=== PATIENT | female | born 1975 | race Caucasian/White ===

== ENCOUNTER 2017-07-14 13:31 | Emergency (ER) | payer OTHER ==
[2017-07-14 13:55] VITALS: BP 130/68; PULSE 86; TEMP 97.8; BMI 22.8
--- NOTE | 2017-07-14 15:26 | PDOC ---
Attending Attestation - HPI HPI: 07/14/17 17:11 Patient is a 42 year old female with a significant past medical history of Major depressive disorder, Anxiety, OCD and ADHD who presents to the ED after being sent by her therapist to be medically cleared and transferred to [facility]. Patient reports therapist stated she did not like the psychological state in which she was in stating, she was beginning to experience decreased sleep, decreased appetite and increased depression. She reports her therapist wanted her to go in [facility] for observation. Patient reports experiencing anxiety while in her therapists office. Denies suicidal thought, homicidal thoughts. Denies nausea, vomiting. Denies chest pain. Denies fevers, chills. Denies recent trauma. Denies contact with sick individuals, out of state travel. Denies any other symptoms. Allergies: None Social history: Current smoker. No alcohol. No illicit drugs. Surgical history: None PMD: Dr. Denis Lord - Physicial Exam PE: 07/14/17 17:11 Vitals: Triage Vital signs reviewed General Appearance: no acute distress, well nourished well developed Head: Atraumatic Eyes: Pupils equal reactive round, extraocular movement intact Ears: TMs normal bilaterally Nose: Nares patent bilaterally; no nasal congestion Throat: Posterior oropharynx without erythema, mucous membranes moist Neck: Supple; No Nuchal rigidity Chest Wall: Nontender Cardiac: Regular rate and rhythm, no murmurs, no rubs, no gallops Lungs: Clear to auscultation bilateral, good air movement bilaterally Abdomen: Soft, non distended, normal bowel sounds, non tender to palpation Genitourinary: Rectal: Exam deferred Extremities: Full range of motion to all extremities, no cyanosis, clubbing, or edema Skin: Warm and dry, no rashes or lesions, no rash, no petechiae Neuro: AOX3; Cranial Nerves 2-12 grossly intact, Strength intact to all extremities, Sensation intact to all extremities, gait normal Psych: +Passive suicidal ideation. +Some visual hallucinations. No definitive plan. No thoughts of harming others or self. No auditory hallucinations Normal mood, normal affect - Medical Decision Making 07/14/17 17:11 Documentation prepared by Jarrett White, acting as medical artist for Gabo Nolen MD, /DO. <Jarrett White - Last Filed: 07/14/17 17:11> - Resident Resident Name: Eduar Cross - ED Attending Attestation I have performed the following: I have examined & evaluated the patient, The case was reviewed & discussed with the resident, I agree w/resident's findings & plan, Exceptions are as noted - Medical Decision Making 42 years old with past medical history significant for anxiety depression polysubstance abuse sent to the emergency department for psychiatric admission and medical clearance Patient was seen and evaluated by her psychiatrist today states that she has been in a steady downward decline regarding her ability to care for self her impulsivity as well as now expressing passive suicidal ideation Patient currently lives in a long term there was a question whether she is improperly using her prescription pain medications as well Here in the emergency department patient endorsing same passive suicidal ideation without definitive plan. Denies homicidal ideation denies auditory hallucinations but some visual hallucinations which she states may be secondary to be overtired patient states she is not eating she is not sleeping Psychiatry Casandra Blanco INTEGRATED SPECIALIST consulted. Patient placed on one-to-one observation Pending consultation and disposition Reevaluation Psychiatrist and patient have found a bed at [facility] for patient Bed will become available tomorrow We'll place patient in ED short stay observation overnight <Gabo Nolen - Last Filed: 07/14/17 17:58>
[2017-07-14 15:51] LABS: BASO % 0.3 % (0-2.0); EOS % 0.1 % (0-4.5); HEMOGLOBIN 15.4 GM/dL (10.7-15.3); LYMPH % 13.1 % (8-40); MCH 32.6 pg (25.7-33.7); MCHC 34.2 g/dl (32.0-36.0); MEAN CELL VOLUME 95.4 fl (80-96); MEAN PLT VOLUME 9.6 fl (7.5-11.1); MONO % 2.8 % (3.8-10.2); NEUT % 83.7 % (42.8-82.8); PLATELET COUNT 161 K/MM3 (134-434); RBC 4.72 M/mm3 (3.60-5.2); RDW 14.2 % (11.6-15.6); WHITE BLOOD COUNT 6.8 K/mm3 (4.0-10.0)
--- NOTE | 2017-07-14 16:12 | PDOC ---
History of Present Illness - General Chief Complaint: Psychiatric Stated Complaint: EVALUATION (PCP SENT) Time Seen by Provider: 07/14/17 14:32 History Source: Patient Exam Limitations: No Limitations - History of Present Illness Initial Comments: 42F with pmh of Major depressive disorder, Anxiety, OCD and ADHD sent by her psychiatrist to be medically cleared before potential admission to [facility]. Patient states that she was feeling anxious earlier at the therapist's office, with recent worsening of her depression and stressors but denied suicidal or homicidal thoughts. However. patient came with letter from psychiatrist who stated that the patient did have passive suicidal ideation. Past History - Past Medical History Allergies/Adverse Reactions: Allergies No Known Allergies Allergy (Verified 07/14/17 13:48) Home Medications: Ambulatory Orders Dextroamphetamine Sulfate [Zenzedi] 20 mg PO DAILY 02/26/16 Divalproex [Depakote -] 500 mg PO BID 02/26/16 Duloxetine HCl [Cymbalta] 60 mg PO DAILY 02/26/16 Gabapentin [Neurontin] 300 mg PO HS 02/26/16 Levothyroxine [Synthroid -] 50 mcg PO DAILY 02/26/16 Methocarbamol [Robaxin -] 500 mg PO TID PRN #20 tablet 02/26/16 Naproxen [Naprosyn -] 500 mg PO BID PRN #14 tablet 02/26/16 Oxycodone HCl/Acetaminophen [Percocet 5-325 mg Tablet -] 1 tab PO Q6H PRN #10 tablet MDD 4 02/26/16 Tramadol HCl 50 mg PO Q12H 02/26/16 - Social History Smoking Status: Current every day smoker Number of Cigarettes Per Day: 20 *Review of Systems - Review of Systems Able to Perform ROS?: Yes Constitutional: No: Symptoms Reported HEENTM: No: Symptoms Reported Respiratory: No: Symptoms reported Cardiac (ROS): No: Symptoms Reported ABD/GI: No: Symptoms Reported : No: Symptoms Reported Musculoskeletal: No: Symptoms Reported Integumentary: No: Symptoms Reported Neurological: No: Symptoms reported Psychiatric: Yes: Anxiety, Depression, Stressors, Emotional Problems, Mood Swings, Change in Appetite Endocrine: No: Symptoms Reported All Other Systems: Reviewed and Negative *Physical Exam - Vital Signs Last Vital Signs Temp Pulse Resp BP Pulse Ox 97.8 F 86 18 130/68 99 07/14/17 13:48 07/14/17 13:48 07/14/17 13:48 07/14/17 13:48 07/14/17 13:48 - Physical Exam General Appearance: Yes: Nourished, Appropriately Dressed. No: Apparent Distress HEENT: positive: EOMI, HOMER, Normal ENT Inspection Neck: negative: Tender Respiratory/Chest: positive: Lungs Clear, Normal Breath Sounds. negative: Chest Tender, Respiratory Distress Cardiovascular: positive: Regular Rhythm, Regular Rate, S1, S2 Gastrointestinal/Abdominal: positive: Normal Bowel Sounds, Flat, Soft. negative : Tender Extremity: positive: Normal Capillary Refill, Normal Inspection Neurologic: positive: Fully Oriented, Alert, Normal Mood/Affect. negative: Confused, Disoriented Plan - Progress Note Progress Note: 07/14/17 16:19 PHLEBOTOMIST LAB ASSISTANT Casandra Blanco personnel coordinator, will come see the patient. Service Dog Peanut allowed to come to the patient's room. Will evaluate with labs before discharging to [facility] after Psych consult. - Order(s) Order(s): Orders last 12 hours Category Date Time Status EKG [ELECTROCARDIOGRAM] [CARD] Stat Cardiology 07/14/17 15:08 Ordered CBC WITH DIFFERENTIAL Stat Lab 07/14/17 15:08 Ordered URINALYSIS Stat Lab 07/14/17 15:08 Ordered - Laboratory CBC & Chemistry Diagram: 07/14/17 15:16 07/14/17 15:16 Lab/Micro Results: 07/14/17 15:16 RBC 4.72 MCV 95.4 MCHC 34.2 RDW 14.2 MPV 9.6 D Neutrophils % 83.7 H Lymphocytes % 13.1 Monocytes % 2.8 L Eosinophils % 0.1 Basophils % 0.3 *DC/Admit/Observation/Transfer Diagnosis at time of Disposition: Major depression Qualifiers: Major depression recurrence: recurrent Active/Remission status: currently active Major depression episode severity: unspecified Qualified Code(s): F33.9 - Major depressive disorder, recurrent, unspecified - Discharge Dispostion Disposition: TRANSFER ACUTE CARE/OTHER HOSP Condition at time of disposition: Guarded - Referrals Referrals: Denis Lord MD [Primary Care Provider] - - Patient Instructions Printed Discharge Instructions: DI for Depression -- Adult Additional Instructions: Please return to the ER if symptoms persist, worsen, or new symptoms arise. Please follow up with your psychiatrist in 2-3 days. Please return to the ER if you have any signs or symptoms of chest pain, shortness of breath, uncontrollable fever, chills, nausea, vomiting, numbness, tingling, or weakness in any part of your body, changes in vision, or slurred speech. Please take your medications as prescribed. - Post Discharge Activity
[2017-07-14 16:17] LABS: ALBUMIN 3.5 g/dl (3.4-5.0); ANION GAP 4 (8-16); BLOOD UREA NITROGEN 12 mg/dL (7-18); CALCIUM 8.9 mg/dL (8.5-10.1); CHLORIDE 103 mmol/L (98-107); CO2 31 mmol/L (21-32); CREATININE 0.5 mg/dL (0.55-1.02); GLUCOSE,RANDOM 101 mg/dL (74-106); SGOT/AST 9 U/L (15-37); SGPT/ALT 18 U/L (12-78); SODIUM 138 mmol/L (136-145)
[2017-07-14 16:19] LABS: ALK PHOS 67 U/L (45-117); BILIRUBIN,TOTAL 0.7 mg/dL (0.2-1.0); TOT PROT 6.6 g/dl (6.4-8.2)
[2017-07-14 16:54] LABS: URINE APPEARANCE SLCLOUDY; URINE BILIRUBIN NEGATIVE (NEGATIVE); URINE BLOOD NEGATIVE (NEGATIVE); URINE COLOR YELLOW; URINE GLUCOSE (UA) NEGATIVE (NEGATIVE); URINE KETONE 1+ (NEGATIVE); URINE LEUK ESTERASE NEGATIVE (NEGATIVE); URINE NITRITE NEGATIVE (NEGATIVE); URINE PROTEIN NEGATIVE (NEGATIVE); URINE UROBILINOGEN NEGATIVE mg/dL (0.2-1.0)
[2017-07-14] MEDS ORDERED: DIVALPROEX NA *ER* EXTEND REL 500 MG TABLET.SA (FP) PO ONE (18:02)
[2017-07-14] MEDS ORDERED: traZODone HCL 150 MG TABLET PO ONE (18:03)
--- NOTE | 2017-07-14 18:07 | CON.PSY ---
Psychiatry Consult Chief Complaint: 42 year old female sent to ER by her Psychiatrist for severe depression, passive suicidal ideation, anger and irritability. It was felt that she is so severely depressed that she is not taking care of her ADL, not eating , and not sleelping x several days. Symptoms: reports: Depressed Mood, Self destructive thoughts, Appetite Disturbance, Hopelessness, Sleep Disturbance, Impaired Concentration, Decreased Motivation, Irritability, Anxiety, Somatic Symptoms, Inability to Control Temper , Aggressivity - Allergies Allergies: Allergies Allergy/AdvReac Type Severity Reaction Status Date / Time No Known Allergies Allergy Verified 07/14/17 13:48 - Current Living Status Usual Living Arrangement: Other (lives in a long-term since February of 2017 when her mother told her she had to leave.) - Current Mental Status Evaluation Appearance: Disheveled Attitude: Uncooperative, Belligerent - Affect Affect: Expansive, Constrictive Appropriateness: Not Appropriate (refusing to give information and hx- very scant " leave me alone") - Mood Mood: Depressed, Angry, Irritable - Speech/Language Expressive: Coherent Receptive: Age Appropriate Comprehension of Spoken Words - Thought Process Thought Process: Intact - Thought Content Hallucinations: Absent Delusions: Absent - Cognition Attention: Diminished Orientation: Person, Place Memory, Immediate Recall: Impaired Memory, Short Term: 2/3 - Concentration Serial Sevens Intact: No Simple Calculations Intact: No - Abstraction Judgement: Moderately Impaired - Insight Insight: Impaired - Impulse Control Impulse Control: Moderately Impaired - Suicidal Ideation Suicidal Ideation: Yes (passive suicidal ideation) - Homicidal Ideation Homicidal Ideation: No Assessment/Plan This is a 42 year old female with a hx of a mood disorder, ADHD, Anxiety who was sent her by her outpatient psychiatrist, Dr. Green at [phone] when patient presented with severe depression, severe anxiety, with a sense of helplessness and hopelessness. Patient has not been eating, sleeping and taking showers x several weeks . She will need inpatient hospitalizaton as she presents a danger to her self and her welfare [facility] was called at [phone] who stated that a bed will open up in the am She asked that the information be faxed to [email or web address] hospital [employer]/admission discharge rn nurse . Also, patient has a service dog, a little puppy. In the meantime, patient should continue her depakote tonight 1000 mgs bid and valium 5 mgs prn percoet 5/325 mgs prn These meds she is on as per [facility].
--- NOTE | 2017-07-14 19:45 | PDOC ---
*Physical Exam - Vital Signs Last Vital Signs Temp Pulse Resp BP Pulse Ox 97.8 F 86 18 130/68 99 07/14/17 13:48 07/14/17 13:48 07/14/17 13:48 07/14/17 13:48 07/14/17 13:48 ED Treatment Course - LABORATORY CBC & Chemistry Diagram: 07/14/17 15:16 07/14/17 15:16 - ADDITIONAL ORDERS Additional order review: Laboratory Results 07/14/17 07/14/17 07/14/17 15:16 15:16 15:16 Sodium 138 Potassium 5.0 Chloride 103 Carbon Dioxide 31 Anion Gap 4 L BUN 12 Creatinine 0.5 L Creat Clearance w eGFR > 60 Random Glucose 101 Calcium 8.9 Total Bilirubin 0.7 D AST 9 L ALT 18 Alkaline Phosphatase 67 Total Protein 6.6 Albumin 3.5 Urine Color Yellow Urine Appearance Slcloudy Urine pH 7.0 Ur Specific [place] 1.015 Urine Protein Negative Urine Glucose (UA) Negative Urine Ketones 1+ H Urine Blood Negative Urine Nitrite Negative Urine Bilirubin Negative Urine Urobilinogen Negative Ur Leukocyte Esterase Negative Valproic Acid 97.221 07/14/17 15:16 RBC 4.72 MCV 95.4 MCHC 34.2 RDW 14.2 MPV 9.6 D Neutrophils % 83.7 H Lymphocytes % 13.1 Monocytes % 2.8 L Eosinophils % 0.1 Basophils % 0.3 Medical Decision Making - Medical Decision Making 07/14/17 19:40 Pt was signed out to me by Dr. Cross, day team. Pt is in our ER pending admission to [address] [place] [address] [facility]. Pt became increasingly agitated in our ER and verbally and physically abusive to staff. My attending has discussed the case with BENTON Morrison who states she can be discharged. Will d/c patient now. *DC/Admit/Observation/Transfer Diagnosis at time of Disposition: Major depression Qualifiers: Major depression recurrence: recurrent Active/Remission status: currently active Major depression episode severity: unspecified Qualified Code(s): F33.9 - Major depressive disorder, recurrent, unspecified - Discharge Dispostion Disposition: HOME Condition at time of disposition: Guarded Admit: No - Referrals Referrals: Denis Lord MD [Primary Care Provider] - - Patient Instructions Printed Discharge Instructions: DI for Depression -- Adult Additional Instructions: Please return to the ER if symptoms persist, worsen, or new symptoms arise. Please follow up with your psychiatrist in 2-3 days. Please return to the ER if you have any signs or symptoms of chest pain, shortness of breath, uncontrollable fever, chills, nausea, vomiting, numbness, tingling, or weakness in any part of your body, changes in vision, or slurred speech. Please take your medications as prescribed. - Post Discharge Activity
--- NOTE | 2017-07-14 20:02 | PDOC ---
*Physical Exam - Vital Signs Last Vital Signs Temp Pulse Resp BP Pulse Ox 97.8 F 86 18 130/68 99 07/14/17 13:48 07/14/17 13:48 07/14/17 13:48 07/14/17 13:48 07/14/17 13:48 - Physical Exam Comments: 07/14/17 19:57 pt was admitted for ED short stay for depression and awaiting bed availability at [facility]. pt at this time, [email or web address], wishes to leave. i contacted Ms. Casandra Knapp who states that pt can be discharged since she is not suicidal. pt denies suicidal ideations in the ED. will d/c with psych f/u. ED Treatment Course - LABORATORY CBC & Chemistry Diagram: 07/14/17 15:16 07/14/17 15:16 - ADDITIONAL ORDERS Additional order review: Laboratory Results 07/14/17 07/14/17 07/14/17 15:16 15:16 15:16 Sodium 138 Potassium 5.0 Chloride 103 Carbon Dioxide 31 Anion Gap 4 L BUN 12 Creatinine 0.5 L Creat Clearance w eGFR > 60 Random Glucose 101 Calcium 8.9 Total Bilirubin 0.7 D AST 9 L ALT 18 Alkaline Phosphatase 67 Total Protein 6.6 Albumin 3.5 Urine Color Yellow Urine Appearance Slcloudy Urine pH 7.0 Ur Specific [place] 1.015 Urine Protein Negative Urine Glucose (UA) Negative Urine Ketones 1+ H Urine Blood Negative Urine Nitrite Negative Urine Bilirubin Negative Urine Urobilinogen Negative Ur Leukocyte Esterase Negative Valproic Acid 97.221 07/14/17 15:16 RBC 4.72 MCV 95.4 MCHC 34.2 RDW 14.2 MPV 9.6 D Neutrophils % 83.7 H Lymphocytes % 13.1 Monocytes % 2.8 L Eosinophils % 0.1 Basophils % 0.3 *DC/Admit/Observation/Transfer Diagnosis at time of Disposition: Major depression Qualifiers: Major depression recurrence: recurrent Active/Remission status: currently active Major depression episode severity: unspecified Qualified Code(s): F33.9 - Major depressive disorder, recurrent, unspecified - Discharge Dispostion Disposition: HOME Condition at time of disposition: Guarded - Referrals Referrals: Denis Lord MD [Primary Care Provider] - - Patient Instructions Printed Discharge Instructions: DI for Depression -- Adult Additional Instructions: Please return to the ER if symptoms persist, worsen, or new symptoms arise. Please follow up with your psychiatrist in 2-3 days. Please return to the ER if you have any signs or symptoms of chest pain, shortness of breath, uncontrollable fever, chills, nausea, vomiting, numbness, tingling, or weakness in any part of your body, changes in vision, or slurred speech. Please take your medications as prescribed. - Post Discharge Activity
--- NOTE | 2017-07-18 11:44 | EKG ---
Test Reason : Blood Pressure : / mmHG Vent. Rate : 078 BPM Atrial Rate : 078 BPM P-R Int : 130 ms QRS Dur : 078 ms QT Int : 368 ms P-R-T Axes : 048 067 052 degrees QTc Int : 419 ms NORMAL SINUS RHYTHM NORMAL ECG NO PREVIOUS ECGS AVAILABLE Confirmed by MD Mejia, Lasha ([id number]) on 07/18/2017 11:43:57 AM Referred By: Confirmed By:Lasha Ba MD
== END 2017-07-14 19:55 | disposition short-term general hospital (02) ==
LOC: JER 13:31
DX: F33.2 Major depressive disorder, recurrent severe without psychotic features (principal); F90.9 Attention-deficit hyperactivity disorder, unspecified type; F41.9 Anxiety disorder, unspecified
CPT/HCPCS: 36415; 80053; 80164; 81003; 85025; 93005; 93010; 99283-25